=== PATIENT | male | born 1975 | race Hispanic/Latino ===

== ENCOUNTER 2019-08-16 12:11 | Emergency (ER) | payer OTHER ==
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
[2019-08-16 14:23] VITALS: BP 125/86; TEMP 98.3; O2SAT 99
== END 2019-08-16 14:17 | disposition home or self-care (01) ==
LOC: ER 12:11
DX: S71.102D Unspecified open wound, left thigh, subsequent encounter (principal)
CPT/HCPCS: 99281